=== PATIENT | male | born 1970 | race Caucasian/White ===

== ENCOUNTER 2017-03-10 05:38 | Day surgery (SDC) | payer OTHER ==
[~2017-03-10] VITALS: Ht 172.7 cm; Wt 75.7 kg
--- NOTE | ~2017-03-10 | O ---
[facility] [place] [address] OPERATIVE REPORT Name: GABRIELLE HATCH Room #: DEP [facility] M.R.#: [id number] Admission: 03/10/17 Attend Phys: Shawn Negrete MD, Discharge: 03/10/17 Date of : 66 Report #: [id number] THIS REPORT FOR: //name// CC: Timothy Negrete DATE OF SERVICE: 03/10/2017 PREOPERATIVE DIAGNOSES: 1. Bilateral stage IV ischial decubitus wounds. 2. Bilateral ischial osteomyelitis. 3. Incomplete quadriplegia. 4. Hypertension. 5. Diabetes mellitus. 6. Prior stage IV sacral decubitus wounds, status post debridement of flap closure. POSTOPERATIVE DIAGNOSES: 1. Bilateral stage IV ischial decubitus wounds. 2. Bilateral ischial osteomyelitis. 3. Incomplete quadriplegia. 4. Hypertension. 5. Diabetes mellitus. 6. Prior stage IV sacral decubitus wounds, status post debridement of flap closure. PROCEDURES PERFORMED: 1. Excisional debridement of skin, subcutaneous tissue, muscle, and bone, from a left ischial decubitus wound, ultimately measuring 2 x 2 cm in dimension (4 square cm). Preoperative wound measurements were 0.5 x 0.5 cm, taking down to the bone. 2. Excisional debridement of skin, subcutaneous tissue, muscle, and bone from the right ischial decubitus wound ultimately measuring 5 cm x 3.5 cm in dimension (17.5 square cm). Preoperative wound measurements were 3 x 3 cm in dimension with significant undermining in cephalad direction with exposed bone. SURGEON: Shawn Negrete M.D. STRAWBERRY GROWER: DREW Wolfe. ANESTHESIA: General endotracheal anesthesia. ESTIMATED BLOOD LOSS: Minimal (less than 5 mL). COMPLICATIONS: None appreciated. [address] [address] OPERATIVE REPORT Name: GABRIELLE HATCH Room #: DEP [facility]#: [id number] Admission: 03/10/17 Attend Phys: Shawn Negrete MD, Discharge: 03/10/17 Date of : 66 Report #: [id number] SPECIMENS: 1. Excised tissue from the left ischium to pathology. 2. Excised bone from the left ischium to microbiology. 3. Excised tissue from right ischium to pathology. 4. Excised bone from the right ischium to microbiology. COMPLICATIONS: None appreciated. INDICATIONS: The patient is a 46-year-old male with a longstanding history of autonomic reflux and incomplete quadriplegia, who has developed numerous bilateral ischial and sacral decubitus wounds. The patient has had foul smelling drainage with necrosis and presented for debridement and an MRI, which showed osteomyelitis. The patient was transitioned to [place] for further rehabilitation and has refused diverting colostomy. The patient's wounds while improved, show an open wound on the right that undermines in a cephalad direction with exposed bone with fibrinopurulent drainage, as well as the left ischium, that shows a smaller wound that tracks deep to the bone and is difficult to undergo local wound care. As such, indication was for excisional debridement of both to allow both opening in the wound and appropriate wound care moving forward. DESCRIPTION OF PROCEDURE: After explaining the risks, benefits, and alternatives of the procedure with the patient in detail, in the preoperative holding area and obtaining a written consent, the patient was brought to the operating room and placed supine on his hospital bed. After conducting a thorough timeout procedure verifying correct patient and procedure, the patient was given general endotracheal anesthesia. Once adequate anesthesia was obtained, his SCDs were hooked up to pneumatic compression device, and he was given a preoperative dose of antibiotics in line with the SCIP protocol. The patient was then positioned on the operating room table in the prone position with all pressure points appropriately padded. The patient's bilateral ischial regions were now prepped and draped in the standard surgical sterile fashion. Evaluation of the left ischium was undertaken first. DeBakey was used and placed down the tract down to bone, and electrocautery was used to circumferentially debride all nonviable skin, subcutaneous tissue, and muscle from the wound. This was carried down into the bed of the wound, where the bone was evident and rongeurs were used to remove the bone, back to healthy bleeding cortex. The removed bone was sent to microbiology for analysis. Hemostasis was attained, the remainder of all tissue in the left ischium at this juncture was healthy and vascularized. The wound was then packed with sterile saline soaked cling wrap, and attention was turned to the right ischium. In the similar fashion, all nonviable skin, subcutaneous tissue and muscle was debrided back circumferentially from the wound carried to the depths of the wound, where exposed bone was taken back with rongeurs to healthy vascularized bone. Hemostasis was assured with electrocautery. The wound was similarly packed with sterile saline soaked cling wrap, and both wounds were then dressed with [facility] [address] [place] [address] OPERATIVE REPORT Name: GABRIELLE HATCH Room #: DEP [facility]#: [id number] Admission: 03/10/17 Attend Phys: Shawn Negrete MD, Discharge: 03/10/17 Date of : 66 Report #: [id number] and Medipore tape in standard fashion. At the end of the procedure, all instrument, needle, and sponge counts were correct. The patient tolerated the procedure without incident, was awakened in the operating room and transitioned to the recovery room in stable condition with no apparent complications. <ELECTRONICALLY SIGNED> By: Shawn Negrete MD, FACS 03/12/17 0853 1622 01 Shawn Negrete MD, FACS /nt
--- NOTE | ~2017-03-10 | S ---
[facility] [place] [address] SURGICAL PATH RPT PROCEDURE Name: GABRIELLE WATT Room #: DEP [facility] M.R.#: [id number] Admission: 03/10/17 Date of : 66 Discharge: 03/10/17 Report #: [id number] Path Case #: [id number] PATHOLOGY REPORT COLLECTION DATE: 03/10/2017 RECEIVED DATE: 03/10/2017 SUBMITTING PHYS: Dr. Shawn Ngerete OTHER PHYS: Dr. Timothy Read SPECIMEN(S) RECEIVED: A.Left ischial wound tissue B.Right ischial wound tissue * * * * * * * * * * * * FINAL DIAGNOSIS: A. Left ischial wound tissue, debridement: - Marked acute inflammation associated with granulation tissue and ulceration, consistent with debridement tissue. B. Right ischial wound tissue, debridement: - Gangrenous necrosis, ulceration and extensive acute inflammation, consistent with debridement tissue. (IUV:csd; d/t: 03/11/2017) PATHOLOGIST: Luz Poole M.D. REPORT ELECTRONICALLY SIGNED BY: Luz Poole M.D. DATE/TIME: 03/11/2017 15:20 * * * * * * * * * * * * GROSS PATHOLOGY: A. The specimen is received in formalin labeled "Gabrielle Watt, left ischial wound tissue". Received is an ellipse of pale og, flaky skin with attached yellow-og fibroadipose tissue measuring 1.8 x 0.8 x 1.6 cm in greatest dimensions. The specimen is submitted representatively in cassette A1. B. The specimen is received in formalin labeled "Gabrielle Watt, right ischial wound tissue". Received are multiple segments of pale og to pink-og skin admixed with yellow-og necrotic-appearing soft tissue measuring 2.8 x 2.8 x 1.2 cm in aggregate dimensions. The specimen is submitted representatively in cassette B1. (CAA; 03/10/2017) CLINICAL HISTORY: Bilateral ischial wounds INITIAL CPT CODE(S): [address] [address] SURGICAL PATH RPT PROCEDURE Name: GABRIELLE WATT Room #: DEP [facility] M.Stephanie.#: [id number] Admission: 03/10/17 Date of : 66 Discharge: 03/10/17 Report #: [id number] Path Case #: [id number]; [id number] B; [id number] Professional services performed by [facility] [address], [place] [address] Technical services performed by [facility] at [address] [place] [address], [facility] [address] [address]. [facility] [address] [place] [address] PHONE: [phone] DIRECTOR: Alonso Vera M.D. * * * END OF REPORT * * *
--- NOTE | ~2017-03-10 | EKG ---
[place] [address] [facility] [place] [address] ELECTROCARDIOGRAM REPORT Name: GABRIELLE HATCH Room #: [facility].#: [id number] Admission: 03/10/17 Attend Phys: Shawn Negrete MD, Discharge: 03/10/17 Date of : 66 Report #: [id number] THIS REPORT FOR: //name// [facility] Test Date: 2017-03-10 Test Time: 07:10:44 Pat Name: GABRIELLE HATCH Department: Room: 150 1 Gender: M Senior Research Associate: NINA : 1970 Requested By: Shawn Negrete Order Number: [id number] MD: Chapincito Ly Measurements Intervals [place] Rate: 73 P: 66 CO: 162 QRS: 51 QRSD: 113 T: 72 QT: 370 QTc: 408 Interpretive Statements Sinus rhythm Probable left atrial enlargement Borderline intraventricular conduction delay RSR' in V1 or V2, right VCD No previous ECG available for comparison Electronically Signed On 03-11-2017 8:42:22 CDT by Chapincito Ly [email or web address] <ELECTRONICALLY SIGNED> By: Chapincito Ly MD, [facility] 03/11/17 0842 0710 Chapincito Ly MD, [facility] /EPI
[~2017-03-10 05:38] MED LIST: APAP650 PO; BACLOFEN20 MG PO; CALCIUM 500 +1 EAC5 PO; CENTRUM SILVER1 EAC2 PO; DILAUDID1 MG/1 ML IV PUSH; ENSURE HIGH PR PO; FLUSH IV PUSH; HEPARIN SO5000 UNIT2 SUBQ; INVANZ 1GM/NS 101 GM IVPB; IRON325 PO; LEVEMIR SUBQ; LIDODERM 5%1 PATC1 TRANSDERM; METFORMIN HCL500 MG PO; NAPROSYN500 MG PO; NOVOLOG100 UNIT/1 SUBQ; NYAMYC15 GM TOP; OMEGA-31000 M1 PO; OXYCODONE HCL15 MG PO; OXYCONTIN40 MG PO; PEPCID20 MG PO; ROBAXIN 750 MG750 M1 PO; SINGULAIR 10 MG10 M1 PO; ZOLOFT50 MG PO; ZOLPIDEM TARTRA10 MG PO
[2017-03-10 08:02] VITALS: BP 143/99
== END 2017-03-10 11:00 ==
LOC: TBA 05:38 → OR 05:38 → TBA 05:39 → OR 09:02
DX: L89.314 Pressure ulcer of right buttock, stage 4 (principal); I96 Gangrene, not elsewhere classified; L89.324 Pressure ulcer of left buttock, stage 4; M46.28 Osteomyelitis of vertebra, sacral and sacrococcygeal region; G82.54 Quadriplegia, C5-C7 incomplete; I10 Essential (primary) hypertension; E11.9 Type 2 diabetes mellitus without complications; D64.9 Anemia, unspecified; F32.9 Major depressive disorder, single episode, unspecified; K21.9 Gastro-esophageal reflux disease without esophagitis; F41.9 Anxiety disorder, unspecified; Z79.4 Long term (current) use of insulin; Z98.890 Other specified postprocedural states
CPT/HCPCS: 50010; 50101; 50386; 50403; 62110; 62900; 70005

== ENCOUNTER → 2017-06-25 | Outpatient (CLI) | payer OTHER | LOC: HYPER 06:58 | DX: E11.622 Type 2 diabetes mellitus with other skin ulcer (principal); L98.411 Non-pressure chronic ulcer of buttock limited to breakdown of skin; L89.213 Pressure ulcer of right hip, stage 3; L89.150 Pressure ulcer of sacral region, unstageable; L89.314 Pressure ulcer of right buttock, stage 4; L89.324 Pressure ulcer of left buttock, stage 4; G82.53 Quadriplegia, C5-C7 complete; E11.69 Type 2 diabetes mellitus with other specified complication; M86.68 Other chronic osteomyelitis, other site; Z79.4 Long term (current) use of insulin ==

== ENCOUNTER 2017-07-16 15:33 | Inpatient (IN) | payer OTHER ==
[~2017-07-16] VITALS: Ht 172.7 cm; Wt 77.5 kg
--- NOTE | ~2017-07-16 | HC ---
[facility] [place] [address] CONSULTATION Name: GABRIELLE HATCH Room #: 203-P ADM [place] M.R.#: [id number] Admission: 07/16/17 Attend Phys: Shawn Hilliard MD Discharge: Date of : 66 Report #: [id number] THIS REPORT FOR: //name// CC: Timothy Hilliard DATE OF SERVICE: 07/17/2017 CHIEF COMPLAINT: Stage IV pressure ulcerations and paraplegia. HISTORY OF PRESENT ILLNESS: This is a 46-year-old male patient with whom I am familiar. I admitted him from the wound clinic on 07/16/2017. I had seen him one time previously. He had stage IV pressure ulceration. He was complaining of chills, worsening autonomic dysreflexia and odor from both urine and wounds. It was felt that he was potentially septic and had significant wound infections and he has been admitted for further evaluation and treatment. Since admission, he has been rehydrated and started on intravenous antibiotic therapy, states he is feeling somewhat better. We have ordered routine blood work, sed rate, CRP as well as MRI of the pelvis. PAST MEDICAL HISTORY: Positive for incomplete quadriplegia, history of bilateral ischial and posterior trochanteric pressure ulcerations, he has a history of pelvic osteomyelitis, and history of autonomic dysreflexia. MEDICATIONS: Include Pepcid, Levemir, fish oil, Levaquin, Zoloft, Colace, MiraLax, Ativan, DuoNeb, OxyContin, Dakin solution, hydromorphone, Lidoderm patch, baclofen, oxycodone, Singulair, Centrum Silver, iron sulfate, metformin, and Robaxin. SOCIAL HISTORY: He is a nonsmoker, has a history of past alcohol use. FAMILY HISTORY: Noncontributory. REVIEW OF SYSTEMS: CONSTITUTIONAL: The patient does complain of fever and chills, does complain of some recent weight loss. NEUROLOGIC: The patient has incomplete quadriplegia with spasticity and autonomic dysreflexia. ENT: The patient denies earache, nasal drainage, or sore throat. CARDIOVASCULAR: The patient denies chest pain, palpitations, or diaphoresis. PULMONARY: The patient denies cough or shortness of breath. GASTROINTESTINAL: The patient does have an ostomy appliance. PHYSICAL EXAMINATION: ORTHOPEDIC: The patient has stage IV pressure ulcerations to the left ischium and right posterior greater trochanter. There is a significant amount of [address] [address] CONSULTATION Name: GABRIELLE HATCH Room #: 203-P [facility] .R.#: [id number] Admission: 07/16/17 Attend Phys: Shawn Hilliard MD Discharge: Date of : 66 Report #: [id number] drainage tunneling and undermining noted. There is some evidence of granulation tissue. NEUROLOGIC: The patient has spasticity, some contractions of the lower extremity and incomplete quadriplegia with some use of his upper extremities. VITAL SIGNS: Temperature 98.6, pulse 93, respiratory rate 18, and blood pressure 104/68. LABORATORY DATA: Sodium 134, potassium 4.2, chloride 100, CO2 of 30, BUN 22, creatinine 0.6, and glucose 256. Initial glucose was 349. Total bilirubin 0.2, calcium is elevated at 10.2, alk phos elevated at 364, SGPT 29, total protein 9.3, albumin 2.5. INR is 1.3. White blood cell count on admission was 9.1, hemoglobin 10.2, hematocrit of 32.2, platelet count 535,000. Urinalysis, positive for nitrite, leukocytes, and many bacteria. MRI of the pelvis demonstrates bilateral osteomyelitis involving the ischial tuberosities with adjacent soft tissue inflammatory infectious changes of phlegmonous tissue, but no abscess noted. CLINICAL IMPRESSION: 1. Stage IV ischial pressure ulcerations. 2. Incomplete quadriplegia. 3. Autonomic dysreflexia. 4. Urinary tract infection. 5. Stage IV pressure ulcerations with underlying osteomyelitis of the pelvis. RECOMMENDATIONS: At this point in time, the patient is likely scheduled for surgical debridement, which I think is appropriate. Once he has cleaned up, I think we could consider wound VACs. Ideally, he will require some sort of a flap coverage that would be certainly quite a challenge with the limited access to plastic surgical evaluation. We need aggressively pressed nutritional support as well as pressure reduction, offloading, turning and repositioning every 2 hours, antibiotic therapy per infectious disease. <ELECTRONICALLY SIGNED> By: Kyle Crowder MD 07/19/17 1502 [id number] 0841 Kyle Crowder MD /nt
[~2017-07-16 15:33] MED LIST changes: -ATIVAN1 MG PO; -COLACE100 MG PO; -DAKIN'S473 M2 IRRIG; -DOXYCYCLINE 10100 MG PO; -DUONEB 2.5-0.5 M3 ML INH; -FISH OIL 1,001000 M2 PO; -LEVAQUIN 500 M500 M2 PO; -MIRALAX17 G1 PO; -OXYCONTIN20 M1 PO
[2017-07-16 18:17] LABS: HEMATOCRIT 32.2 % (42.0-52.0); HEMOGLOBIN 10.2 gm/dL (14.0-18.0); MCH 19.4 pg (26.0-34.0); MCHC 31.7 g/dL (28.0-37.0); MCV 61.1 fL (80.0-100.0); RBC 5.28 mil/uL (4.50-6.00); RDW 18.1 % (10.5-14.5); WBC 9.1 thou/uL (4.0-11.0)
[2017-07-16 18:30] LABS: CALCIUM 10.2 mg/dL (8.5-10.1); CREATININE 0.9 mg/dL (0.7-1.3)
[2017-07-16 18:31] LABS: PREALBUMIN 13.8 mg/dL (18.0-35.7)
[2017-07-16 18:36] LABS: ALBUMIN 2.5 g/dL (3.4-5.0); TOTAL BILIRUBIN 0.2 mg/dL (<0.1-1.0); TOTAL PROTEIN 9.3 g/dL (6.4-8.2)
[2017-07-16 19:26] VITALS: BP 108/72
[2017-07-16 19:37] LABS: URINE BILIRUBIN NEGATIVE (Negative); URINE BLOOD TRACE (Negative); URINE COLOR YELLOW; URINE GLUCOSE-RANDOM* TRACE (Negative); URINE KETONES TRACE (Negative); URINE PROTEIN (DIPSTICK) 1+ (Negative); URINE UROBILINOGEN 0.2 E.U./dl (0.2-1.0)
[2017-07-16 19:43] LABS: URINE LEUKOCYTES-REFLEX 3+ (Negative)
[2017-07-16 19:48] LABS: SQUAMOUS None Seen /LPF (0-3)
[2017-07-16 19:49] LABS: URINE RBC 0-2 Rare /HPF (0-2); URINE WBC-REFLEX 0-5 Rare /HPF (0-5)
[2017-07-16 19:50] LABS: AMORPHOUS PHOSPHATES Few /LPF (None Seen); CASTS None Seen /LPF (None Seen)
[2017-07-16 23:06] VITALS: BP 110/67
[2017-07-17 03:15] VITALS: BP 104/68
[2017-07-17] MEDS ORDERED: FISH OIL 1,001000 M2 PO (03:18)
[2017-07-17] MEDS ORDERED: LEVAQUIN 500 M500 M2 PO (03:20)
[2017-07-17 03:21] LABS: HEMATOCRIT 27.8 % (42.0-52.0); HEMOGLOBIN 8.6 gm/dL (14.0-18.0); MCH 18.9 pg (26.0-34.0); RBC 4.56 mil/uL (4.50-6.00); RDW 17.9 % (10.5-14.5); WBC 7.3 thou/uL (4.0-11.0)
[2017-07-17] MEDS ORDERED: ZOLOFT50 MG PO (03:22)
[2017-07-17] MEDS ORDERED: COLACE100 MG PO (03:23)
[2017-07-17] MEDS ORDERED: DOXYCYCLINE 10100 MG PO (03:24)
[2017-07-17] MEDS ORDERED: MIRALAX17 G1 PO (03:27)
[2017-07-17] MEDS ORDERED: ATIVAN1 MG PO (03:28)
[2017-07-17] MEDS ORDERED: DUONEB 2.5-0.5 M3 ML INH (03:29)
[2017-07-17] MEDS ORDERED: OXYCONTIN20 M1 PO (03:32)
[2017-07-17] MEDS ORDERED: DAKIN'S473 M2 IRRIG (03:41)
[2017-07-17 03:48] LABS: POTASSIUM 4.2 mmol/L (3.5-5.1)
[2017-07-17 03:49] LABS: CALCIUM 8.8 mg/dL (8.5-10.1); CREATININE 0.6 mg/dL (0.7-1.3)
[2017-07-17 07:43] LABS: APTT 29.9 Seconds (24.5-32.8); INR 1.3; PROTIME 12.8 Seconds (9.3-11.4)
[2017-07-17 15:54] VITALS: BP 105/63
[2017-07-17 19:35] VITALS: BP 153/87
[2017-07-18 03:43] VITALS: BP 90/55
[2017-07-18 07:30] LABS: HEMATOCRIT 25.1 % (42.0-52.0); MCH 19.4 pg (26.0-34.0); MCHC 31.7 g/dL (28.0-37.0); MCV 61.1 fL (80.0-100.0); RBC 4.11 mil/uL (4.50-6.00); RDW 17.7 % (10.5-14.5); WBC 5.8 thou/uL (4.0-11.0)
[2017-07-18 07:31] VITALS: BP 126/81
[2017-07-18 07:37] LABS: CALCIUM 8.9 mg/dL (8.5-10.1); CREATININE 0.5 mg/dL (0.7-1.3); POTASSIUM 3.9 mmol/L (3.5-5.1)
[2017-07-18 11:58] VITALS: BP 122/77
[2017-07-18 17:30] VITALS: BP 123/77
[2017-07-18 19:06] VITALS: BP 135/88
[2017-07-18 23:20] VITALS: BP 100/64
[2017-07-19 04:06] VITALS: BP 115/60
[2017-07-19 05:59] LABS: HEMATOCRIT 24.9 % (42.0-52.0); HEMOGLOBIN 7.8 gm/dL (14.0-18.0); MCH 19.3 pg (26.0-34.0); MCHC 31.4 g/dL (28.0-37.0); MCV 61.3 fL (80.0-100.0); RBC 4.06 mil/uL (4.50-6.00); RDW 18.2 % (10.5-14.5); WBC 5.9 thou/uL (4.0-11.0)
[2017-07-19 06:08] LABS: CALCIUM 8.6 mg/dL (8.5-10.1); CREATININE 0.6 mg/dL (0.7-1.3); POTASSIUM 4.4 mmol/L (3.5-5.1)
[2017-07-19 07:10] VITALS: BP 110/63
[2017-07-19 11:35] VITALS: BP 101/53
[2017-07-19 15:00] VITALS: BP 113/74
[2017-07-19 20:46] VITALS: BP 144/87
[2017-07-20 04:30] VITALS: BP 108/67
[2017-07-20 05:12] LABS: HEMATOCRIT 26.9 % (42.0-52.0); HEMOGLOBIN 8.3 gm/dL (14.0-18.0); MCH 18.9 pg (26.0-34.0); MCHC 30.8 g/dL (28.0-37.0); MCV 61.5 fL (80.0-100.0); RBC 4.37 mil/uL (4.50-6.00); RDW 18.1 % (10.5-14.5); WBC 8.8 thou/uL (4.0-11.0)
[2017-07-20 05:20] LABS: CALCIUM 8.6 mg/dL (8.5-10.1); CREATININE 0.5 mg/dL (0.7-1.3); POTASSIUM 4.4 mmol/L (3.5-5.1)
[2017-07-20 07:23] VITALS: BP 97/62
[2017-07-20 11:33] VITALS: BP 81/47
[2017-07-20 12:00] VITALS: BP 88/55
[2017-07-20 16:11] VITALS: BP 119/73
[2017-07-20 19:20] VITALS: BP 106/69
[2017-07-21 05:17] VITALS: BP 133/80
[2017-07-21 06:19] LABS: HEMATOCRIT 27.1 % (42.0-52.0); HEMOGLOBIN 8.4 gm/dL (14.0-18.0); MCHC 31.1 g/dL (28.0-37.0); MCV 61.1 fL (80.0-100.0); RBC 4.44 mil/uL (4.50-6.00); RDW 18.3 % (10.5-14.5)
[2017-07-21 06:36] LABS: WBC 7.1 thou/uL (4.0-11.0)
[2017-07-21 07:04] VITALS: BP 101/69
[2017-07-21 13:00] VITALS: BP 89/55
[2017-07-21 15:30] VITALS: BP 90/58
[2017-07-21 19:06] VITALS: BP 131/83
[2017-07-22 05:20] VITALS: BP 89/58
[2017-07-22 07:40] VITALS: BP 101/67
[2017-07-22 11:15] VITALS: BP 140/91
[2017-07-22 15:53] VITALS: BP 116/93
[2017-07-22] MEDS ORDERED: VANCO1GM IV (17:10)
[2017-07-22] MEDS ORDERED: MEROPENEM 1 GM V1 GM IV (17:10)
== END 2017-07-22 21:00 | DRG 628 ==
LOC: 2N 15:33
PROVIDERS: Emergency Medicine Emergency Medical Services; Internal Medicine; Surgery
PROC: B548ZZA Ultrasonography of Superior Vena Cava, Guidance (ICD-10-PCS; 2017-07-16)
PROC: 02HV33Z Insertion of Infusion Device into Superior Vena Cava, Percutaneous Approach (ICD-10-PCS; 2017-07-16)
PROC: 0QB30ZZ Excision of Left Pelvic Bone, Open Approach (ICD-10-PCS; principal; 2017-07-18)
PROC: 0QB20ZZ Excision of Right Pelvic Bone, Open Approach (ICD-10-PCS; principal; 2017-07-18)
DX: E11.69 Type 2 diabetes mellitus with other specified complication (principal); L89.154 Pressure ulcer of sacral region, stage 4; L89.324 Pressure ulcer of left buttock, stage 4; L89.314 Pressure ulcer of right buttock, stage 4; M86.9 Osteomyelitis, unspecified; N39.0 Urinary tract infection, site not specified; E46 Unspecified protein-calorie malnutrition; G82.50 Quadriplegia, unspecified; G90.4 Autonomic dysreflexia; F32.9 Major depressive disorder, single episode, unspecified; K21.9 Gastro-esophageal reflux disease without esophagitis; I10 Essential (primary) hypertension; Z88.8 Allergy status to other drugs, medicaments and biological substances; Z79.4 Long term (current) use of insulin; Z68.26 Body mass index [BMI] 26.0-26.9, adult
CPT/HCPCS: 10081; 27000; 50010; 50101; 50386; 50403; 62110; 62900; 70005

== ENCOUNTER → 2017-07-16 | Outpatient (CLI) | payer OTHER ==
[~2017-07-16] MED LIST changes: +ATIVAN1 MG PO; +COLACE100 MG PO; +DAKIN'S473 M2 IRRIG; +DOXYCYCLINE 10100 MG PO; +DUONEB 2.5-0.5 M3 ML INH; +FISH OIL 1,001000 M2 PO; +LEVAQUIN 500 M500 M2 PO; +MIRALAX17 G1 PO; +OXYCONTIN20 M1 PO
== END ==
LOC: HYPER 06:51
DX: E11.622 Type 2 diabetes mellitus with other skin ulcer (principal); L98.411 Non-pressure chronic ulcer of buttock limited to breakdown of skin; L98.491 Non-pressure chronic ulcer of skin of other sites limited to breakdown of skin; L89.314 Pressure ulcer of right buttock, stage 4; L89.213 Pressure ulcer of right hip, stage 3; L89.324 Pressure ulcer of left buttock, stage 4; L89.150 Pressure ulcer of sacral region, unstageable; G82.53 Quadriplegia, C5-C7 complete; Z79.4 Long term (current) use of insulin; L89.512 Pressure ulcer of right ankle, stage 2; E11.69 Type 2 diabetes mellitus with other specified complication; M86.8X8 Other osteomyelitis, other site

== ENCOUNTER → 2018-04-02 | Outpatient (CLI) | payer OTHER ==
[~2018-04-02] MED LIST changes: +ATIVAN1 MG PO; +COLACE100 MG PO; +DAKIN'S473 M2 IRRIG; +DOXYCYCLINE 10100 MG PO; +DUONEB 2.5-0.5 M3 ML INH; +FISH OIL 1,001000 M2 PO; +LEVAQUIN 500 M500 M2 PO; +MEROPENEM 1 GM V1 GM IV; +MIRALAX17 G1 PO; +OXYCONTIN20 M1 PO; +VANCO1GM IV
== END | disposition home or self-care (01) ==
LOC: SPEC 08:17
DX: Z45.2 Encounter for adjustment and management of vascular access device (principal); L89.314 Pressure ulcer of right buttock, stage 4; G82.50 Quadriplegia, unspecified; I10 Essential (primary) hypertension; E11.9 Type 2 diabetes mellitus without complications; K21.9 Gastro-esophageal reflux disease without esophagitis; F32.9 Major depressive disorder, single episode, unspecified; D64.9 Anemia, unspecified; M86.9 Osteomyelitis, unspecified; Z98.890 Other specified postprocedural states; Z79.4 Long term (current) use of insulin; Z88.8 Allergy status to other drugs, medicaments and biological substances; Z79.899 Other long term (current) drug therapy; Z79.891 Long term (current) use of opiate analgesic; Z87.828 Personal history of other (healed) physical injury and trauma